=== PATIENT | male | born 1975 ===

== ENCOUNTER 2017-06-24 11:41 | Day surgery (SDC) | payer OTHER ==
[2017-05-23 14:29] VITALS: BMI 29.1
[~2017-06-24 11:41] MED LIST: LEVOFLOXACIN 500 MG PREMIX BAG IVPB ONE
[2017-06-24] MEDS ORDERED: LEVOFLOXACIN 500 MG IVPB 100 ML IVPB ONE (14:02)
[2017-06-24] MEDS ORDERED: MIDAZOLAM HCL 2 MG/2 ML SINGLE DOSE VIAL ONE ×3 (14:11)
[2017-06-24] MEDS ORDERED: LEVOFLOXACIN 500 MG PREMIX BAG IVPB ONE (14:20)
[2017-06-24] MEDS ORDERED: oxyCODONE HCL 5 MG TABLET PO PRN (15:03)
[2017-06-24] MEDS ORDERED: LACTATED RINGERS SOLUTION 1,000 ML IV SCH (15:15)
--- NOTE | 2017-06-24 15:37 | OP ---
Operative Note - Note: Operative Date: 06/24/17 Pre-Operative Diagnosis: right renal stone Operation: right eswl Findings: 7 mm right renal stone Post-Operative Diagnosis: Same as Pre-op Surgeon: Girma Storm
[2017-06-24 17:28] VITALS: BP 122/86; PULSE 82; TEMP 98
--- NOTE | 2017-06-25 09:01 | OP ---
DATE OF OPERATION: 06/24/2017 PREOPERATIVE DIAGNOSIS: Right renal stone. POSTOPERATIVE DIAGNOSIS: Right renal stone. PROCEDURE: Right extracorporeal shock wave lithotripsy. ATTENDING PHYSICIAN: Sara Kruse MD ANESTHESIA: General. DESCRIPTION OF OPERATION: Patient was brought in the operating room, placed in supine position on the operating room table. Ultrasonography and fluoroscopy performed. A 7-mm right lower pole stone was identified. General anesthesia and antibiotics were then administered. The extracorporeal shock wave lithotripsy was then begun; 2500 impulses at 28 joules of power were administered to the stone with excellent fragmentation noted. No complications were noted. The patient tolerated the procedure very well. SARA KRUSE M.D. [id number]
== END 2017-06-24 17:30 | disposition home or self-care (01) ==
LOC: JASU-SURG 11:41
PROVIDERS: ATTEND Urology
PROC: 0TF3XZZ Fragmentation in Right Kidney Pelvis, External Approach (ICD-10-PCS; principal; 2017-06-24 13:30)
DX: N20.0 Calculus of kidney (principal)
CPT/HCPCS: 94760